=== PATIENT | male | born 1960 | race Hispanic/Latino ===

== ENCOUNTER 2017-10-30 21:52 | Emergency (ER) | payer SELFPAY ==
[2017-10-30] MEDS ORDERED: ASPIRIN PO ONE (22:11)
[2017-10-30 22:48] LABS: Basophils % (Auto) 0.6 % (0.0-1.8); Eosinophils # (Auto) 0.1 K/mm3 (0.0-0.4); Eosinophils % (Auto) 2.3 % (0.0-4.3); Hematocrit 40.2 % (35.5-45.6); Hemoglobin 13.6 gm/dl (11.8-15.2); Lymphocytes # (Auto) 1.6 K/mm3 (1.2-5.4); Lymphocytes % (Auto) 28.6 % (13.4-35.0); Mean Corpuscular HGB Conc 34 % (32-34); Mean Corpuscular Hemoglobin 32 pg (28-32); Mean Corpuscular Volume 93 fl (84-94); Monocytes # (Auto) 0.9 K/mm3 (0.0-0.8); Monocytes % (Auto) 15.7 % (0.0-7.3); Platelet Count 220 K/mm3 (140-440); Red Cell Distribution Width 13.5 % (13.2-15.2)
[2017-10-30 23:01] LABS: BUN/Creatinine Ratio 19; Blood Urea Nitrogen 15 mg/dL (9-20); Calcium 8.6 mg/dL (8.4-10.2); Hemolysis Index 60
--- NOTE | 2017-10-31 00:03 | Emergency Department Report ---
ED Chest Pain HPI - General Chief Complaint: Chest Pain Stated Complaint: CP Time Seen by Provider: 10/30/17 22:50 Source: patient Mode of arrival: Ambulatory Limitations: No Limitations - History of Present Illness Initial Comments: This is a pleasant 57-year-old gentleman with a past medical history significant for OR in 2014 with one stent placement in 2016 with 1 stent placement, hypertension, hyperlipidemia, arthritis who comes in complaining of chest pain for over 2 days. He states that chest pain is sharp, intermittent, has been worsening over the last 2 days. He states that there was pain in the neck and shoulder. He states he also felt that he was belching more than usual. He also admits to a headache as well as nausea and shortness of breath. Denies smoking or alcohol use or illicit drug use. He also reports that he feels like he is having hot flashes. The patient is currently living with his sister and goes to the [facility] for his medications. He does not have a impregnating machine operator at this time. He states that this type of chest pain over the last couple days is milder than what he has experienced in the past when he was diagnosed with an acute coronary event. MD Complaint: chest pain -: Gradual, days(s) (2) Onset: during rest Pain Location: substernal Pain Radiation: LUE, neck Severity: moderate Severity scale (0 -10): 8 Quality: sharp Consistency: intermittent Improves With: nothing Worsens With: exertion, inspiration, movement re: nausea Other Symptoms: burping. denies: cough, fever Treatments Prior to Arrival: none - Related Data Home Medications Medication Instructions Recorded Confirmed Last Taken Aspirin [Aspir-Low] 81 mg PO DAILY 10/31/17 10/31/17 1 Day Ago ~10/30/17 Atorvastatin [Lipitor Tab] 40 mg PO QHS 10/31/17 10/31/17 1 Day Ago ~10/30/17 Carvedilol [Coreg] 3.125 mg PO BID 10/31/17 10/31/17 1 Day Ago ~10/30/17 Clopidogrel [Plavix] 75 cap PO DAILY 10/31/17 10/31/17 1 Day Ago ~10/30/17 Esomeprazole Magnesium 20 mg PO DAILY 10/31/17 10/31/17 1 Day Ago ~10/30/17 ISOSORBIDE MONOnitrate [Imdur ER] 30 mg PO DAILY 10/31/17 10/31/17 1 Day Ago ~10/30/17 Lisinopril 20 mg PO DAILY 10/31/17 10/31/17 1 Day Ago ~10/30/17 Previous Rx's Medication Instructions Recorded Last Taken Type Cyclobenzaprine [Flexeril] 10 mg PO TID PRN #30 tablet 10/31/17 Unknown Rx Allergies Allergy/AdvReac Type Severity Reaction Status Date / Time No Known Allergies Allergy Verified 10/30/17 22:50 Heart Score - HEART Score History: Slightly suspicious EKG: Non-specific Age: 45-65 Risk factors: > 3 risk factors or hx of atherosclerotic disease Troponin: < normal limit HEART Score: 4 ED Review of Systems ROS: Stated complaint: CP Other details as noted in HPI Comment: All other systems reviewed and negative Constitutional: see HPI Eyes: as per HPI ENT: as per HPI Respiratory: see HPI Cardiovascular: as per HPI Endocrine: see HPI Gastrointestinal: as per HPI Genitourinary: as per HPI Musculoskeletal: as per HPI Skin: as per HPI Neurological: as per HPI Psychiatric: as per HPI Hematological/Lymphatic: as per HPI ED Past Medical Hx - Past Medical History Hx Hypertension: Yes Hx Heart Attack/AMI: Yes (2013-,2015-) Hx Arthritis: Yes Additional medical history: morbid obestity,elevated cholesterol - Surgical History Additional Surgical History: left ankle surgery - Social History Smoking Status: Former Smoker Substance Use Type: None - Medications Home Medications: Home Medications Medication Instructions Recorded Confirmed Last Taken Type Aspirin [Aspir-Low] 81 mg PO DAILY 10/31/17 10/31/17 1 Day Ago History ~10/30/17 Atorvastatin [Lipitor Tab] 40 mg PO QHS 10/31/17 10/31/17 1 Day Ago History ~10/30/17 Carvedilol [Coreg] 3.125 mg PO BID 10/31/17 10/31/17 1 Day Ago History ~10/30/17 Clopidogrel [Plavix] 75 cap PO DAILY 10/31/17 10/31/17 1 Day Ago History ~10/30/17 Cyclobenzaprine [Flexeril] 10 mg PO TID PRN #30 tablet 10/31/17 Unknown Rx Esomeprazole Magnesium 20 mg PO DAILY 10/31/17 10/31/17 1 Day Ago History ~10/30/17 ISOSORBIDE MONOnitrate [Imdur ER] 30 mg PO DAILY 10/31/17 10/31/17 1 Day Ago History ~10/30/17 Lisinopril 20 mg PO DAILY 10/31/17 10/31/17 1 Day Ago History ~10/30/17 ED Physical Exam - General Limitations: No Limitations General appearance: alert, in no apparent distress - Head Head exam: Present: atraumatic - Eye Eye exam: Present: normal appearance, PERRL - ENT ENT exam: Present: normal exam, normal orophraynx - Neck Neck exam: Present: normal inspection - Respiratory Respiratory exam: Present: normal lung sounds bilaterally. Absent: respiratory distress, wheezes, rales, rhonchi - Cardiovascular Cardiovascular Exam: Present: regular rate, normal rhythm, normal heart sounds - GI/Abdominal GI/Abdominal exam: Present: soft, normal bowel sounds - Extremities Exam Extremities exam: Present: normal inspection, full ROM - Back Exam Back exam: Present: normal inspection, full ROM - Neurological Exam Neurological exam: Present: alert, oriented X3, CN II-XII intact - Psychiatric Psychiatric exam: Present: normal affect, normal mood - Skin Skin exam: Present: warm, dry, intact, normal color ED Course Vital Signs 10/30/17 10/30/17 10/30/17 22:06 22:14 22:15 Temperature 98 F Pulse Rate 89 90 87 Respiratory 18 24 21 Rate Blood Pressure 175/97 177/100 Blood Pressure [Left] O2 Sat by Pulse 96 95 96 Oximetry 10/30/17 10/30/17 10/30/17 22:27 22:30 22:31 Temperature 98.7 F Pulse Rate 86 87 Respiratory 20 19 18 Rate Blood Pressure 161/81 Blood Pressure 177/100 [Left] O2 Sat by Pulse 98 95 97 Oximetry 10/30/17 10/30/17 10/30/17 22:45 23:00 23:15 Temperature Pulse Rate 86 85 83 Respiratory 21 15 22 Rate Blood Pressure 177/100 141/83 141/83 Blood Pressure [Left] O2 Sat by Pulse 96 95 95 Oximetry 10/30/17 10/30/17 10/30/17 23:27 23:30 23:45 Temperature Pulse Rate 84 84 102 H Respiratory 22 23 19 Rate Blood Pressure 141/83 132/85 132/85 Blood Pressure [Left] O2 Sat by Pulse 96 94 96 Oximetry 10/31/17 10/31/17 10/31/17 00:00 00:15 00:30 Temperature Pulse Rate 86 86 84 Respiratory 19 20 20 Rate Blood Pressure 149/92 149/92 152/88 Blood Pressure [Left] O2 Sat by Pulse 95 96 96 Oximetry 10/31/17 00:45 Temperature Pulse Rate 83 Respiratory 21 Rate Blood Pressure 152/88 Blood Pressure [Left] O2 Sat by Pulse 96 Oximetry - Reevaluation(s) Reevaluation #1: 10/31/17 01:31 2 sets of cardiac enzymes at this time are negative. His BNP is also negative. D-dimer is also negative. The patient is feeling better. Likelihood of an acute coronary event at this time is low. I explained to the patient that it is unlikely these having an acute coronary event at this time. However, he will need to follow-up with his primary care doctor and his impregnating machine operator of choice. He expresses understanding. ED Medical Decision Making - Lab Data Result diagrams: 10/30/17 22:26 10/30/17 22:26 Critical care attestation.: If time is entered above; I have spent that time in minutes in the direct care of this critically ill patient, excluding procedure time. ED Disposition Clinical Impression: Chest pain at rest Disposition: -01 TO HOME OR SELFCARE Is pt being admited?: No Does the pt Need Aspirin: No Condition: Stable Instructions: Chest Pain (ED), Costochondritis (ED) Additional Instructions: Rest, fluids, follow-up with her primary care doctor of choice, watch for worsening or new symptoms, return as needed. Prescriptions: Cyclobenzaprine [Flexeril] 10 mg PO TID PRN #30 tablet PRN Reason: Muscle Spasm Referrals: PRIMARY CARE, [Primary Care Provider] - 3-5 Days
--- NOTE | 2017-10-31 01:15 | XRay Report ---
FINAL REPORT EXAM: XR CHEST ROUTINE 2V HISTORY: chest pain COMPARISON: None available. FINDINGS:: Frontal and lateral views of the chest obtained. Cardiac silhouette is within normal limits. Questionable nodule projecting over the right midlung measuring 8 millimeters. Otherwise, no focal consolidation or effusion. No pneumothorax. Visualized bony thorax is grossly intact. IMPRESSION:: Questionable 8 millimeter nodule right midlung versus artifact. Remaining lungs are clear. Followup exam suggested to assess stability of possible nodule.
[2017-10-31 07:19] VITALS: BP 146/87
== END 2017-10-31 05:30 | disposition home or self-care (01) ==
LOC: EDSEX → ED 21:52
DX: R07.89 Other chest pain (principal); I10 Essential (primary) hypertension; E66.01 Morbid (severe) obesity due to excess calories; I25.2 Old myocardial infarction; Z87.891 Personal history of nicotine dependence; Z79.82 Long term (current) use of aspirin
CPT/HCPCS: 36415; 71046; 80048; 83880; 84484; 85025; 85379; 93005; 93010